=== PATIENT | female | born 1950 | race Caucasian/White ===

== ENCOUNTER 2016-10-31 11:33 | Emergency (ER) | payer MEDICARE, BC ==
[~2016-10-31] VITALS: Ht 162.6 cm; Wt 95.8 kg
[~2016-10-31 11:33] MED LIST: ASPI-557 PO; ATEN50TA66 PO; FLUT16SP EA NOSTRIL; FLUT1DIS3 INH; IBUP-1264 PO; LEVO50TA4 PO; LISI10TA7 PO; MULT-933 PO; OLOP5DRO BOTH EYES; PANT40TA PO; VALE530C PO
[2016-10-31 11:35] VITALS: Ht 162.6 cm; Wt 95.8 kg
--- OUTSIDE RECORDS SUMMARY | 2016-10-31 11:37 | XMS REPORT | Continuity of Care Document ---
Author Author [facility] Organization [facility] Address Unknown Phone Unavailable Allergies Medications Problems Procedures Results Encounters ACCT No. Visit Date/Time Discharge Status Pt. Type Provider Facility Loc./Unit Complaint [id number] 04/25/2015 19:10:00 2014 04:41:34 DIS Emergency NANNETTE MARSHALL
--- OUTSIDE RECORDS SUMMARY | 2016-10-31 11:37 | XMS REPORT | Continuity of Care Document ---
Author Author [facility] Organization [facility] Address Unknown Phone Unavailable Support Name Relationship Address Phone CHINYERE BETANCOURT MD Caregiver [address] [place] [address] Unavailable CHINYERE BETANCOURT MD Caregiver [address] [place] [address] Unavailable RICHARD STEWART Next Of Kin [address] [facility] [address] [place] [address] C Insurance Providers Guarantor Mitra Stewart Address [address] [place] [address] C Email [email or web address] Policy Number [id number] Subscriber's Name Mitra Stewart Relationship 18 Self Group Number [id number] Effective Date 12 Expiration Date 13 Advance Directives Directive Response Recorded Date/Time Ordered Resuscitation Status Full Code 02/15/16 2:05pm Resuscitation Documents on File No 02/16/16 6:41am DPOA for Healthcare Only No 02/16/16 6:41am Living Will No 02/16/16 6:41am Problems Active Problems Medical Problem Onset Date Status Chest discomfort Unknown Acute Post-procedure ecchymosis Unknown Acute Right arm pain Unknown Acute Urinary tract infection Unknown Acute Medications Current Home Medications Medication Dose Units Route Directions Days Qty Instructions Start Date Aspirin (Aspir 81) 81 Mg Tablet. 1 Tab Oral Daily 11/04/14 Atenolol (Tenormin) 50 Mg Tablet 1 Tab Oral Bedtime 01/07/11 Fluticasone Propionate (Fluticasone Prop 50 Mcg/Actuation Nasal [place]) 120 [place]/16 G [place] 1 [place] Intranasal As Needed 16 02/15/16 Fluticasone/Salmeterol (Advair 250-50 Diskus) 1 Disk W/Dev Inhaler 1 Puff Oral Twice A Day 60 02/15/16 Ibuprofen 800 Mg Tablet 1 Tab Oral As Needed as needed for Pain 09/24/09 Levothyroxine Sodium (Synthroid) 50 Mcg Tablet 1 Tab Oral Daily 30 02/15/16 Lisinopril 10 Mg Tablet 1 Tab Oral Bedtime 04/26/15 Multivitamin (Multi-Day Vitamins) 1 Each Tablet 1 Tab Oral Daily 30 Tablet 02/15/16 Olopatadine Hcl (Patanol) 50 Drop/5 Ml Drops 1 Drop Both Eyes Twice A Day as needed for Prn Orders 04/26/15 Pantoprazole Sodium (Protonix) 40 Mg Tablet. 1 Tab Oral Before Breakfast 11/04/14 Valerian Root (Valerian) 450 Mg Capsule 4 Cap Oral Daily 02/15/16 Past Home Medications Medication Directions Ordered Status Acyclovir 400 Mg Tablet, 1 Tab Oral 11/04/14 Discontinued Atenolol (Tenormin) 25 Mg Tablet, Daily 09/24/09 Discontinued Bi/Pro/Dhea .60/2. , Daily 09/24/09 Discontinued Loratadine 10 Mg Tablet, 10 Mg Oral Twice A Day 02/17/11 Discontinued Meclizine Hcl 25 Mg Tablet, 25 Mg Oral As Needed 02/17/11 Discontinued Triamterene/Hydrochlorothiazid (Maxzide 75/50 Tablet) 1 Tab Tablet, Daily 08/04 Discontinued Social History Social History Problem Response Recorded Date/Time Onset Date Status Chewing Tobacco Status No 02/16/2016 6:37am Not Applicable Not Applicable Hx Substance Use No 02/16/2016 6:37am Not Applicable Not Applicable Hx Alcohol Use No 02/16/2016 6:37am Not Applicable Not Applicable Has the pt used tobacco in the last 12 months No 02/16/2016 6:37am Not Applicable Not Applicable Query Response Start Date Stop Date Smoking Status Never smoker Hospital Discharge Instructions No hospital discharge instructions. Plan of Care Discharge Date 02/16/16 9:00am Prescriptions See Medication Section Functional Status Query Response Date Recorded Ability to complete ADL's impeded by No change February 16, 2016 6:41am Allergies, Adverse Reactions, Alerts Allergen Type Severity Reaction Status Last Updated indomethacin sodium Allergy Unknown VERTIGO Active 04/26/15 ciprofloxacin HCl Allergy Unknown VOMITING Active 04/26/15 rosuvastatin calcium Allergy Unknown MYALGIA Active 04/26/15 Indomethacin Allergy Unknown VERTIGO Active 04/26/15 Cefaclor Allergy Unknown RASH Active 04/26/15 Erythromycin base Allergy Unknown RASH Active 04/26/15 Ciprofloxacin Allergy Unknown VOMITING Active 04/26/15 Barium iodide Allergy Unknown RASH Active 04/26/15 Milk Allergy Unknown Active 02/15/16 Wheat Allergy Unknown Active 02/15/16 Immunizations Query Response on File Recorded Date/Time Hx Influenza Vaccination Y fall 201302/16/16 6:37am Hx Pneumococcal Vaccination No 02/16/16 6:37am Hx Tetanus, Diptheria, Pertussis Y 200811/04/14 5:56am Hx Influenza Vaccination Y fall 201302/16/16 6:37am Hx Tetanus, Diptheria, Pertussis Y 200811/04/14 5:56am Vital Signs Acute Vital Signs Vital Response Date/Time Temperature (Fahrenheit) 97.8 deg F (96.8 - 99.1) 02/16/2016 7:58am Temperature (Calculated Celsius) 36.78920 degrees C (36.0 - 37.3) 02/16/2016 7:58am Temperature Source Oral 02/16/2016 7:58am Pulse Rate (adult) 50 bpm (60 - 100) 02/16/2016 8:55am Respiratory Rate 16 breaths/min (10 - 20) 02/16/2016 8:55am O2 Sat by Pulse Oximetry 98 % (90 - 100) 02/16/2016 8:55am Oxygen Delivery Method Room Air 02/16/2016 8:55am Blood Pressure 130/63 mm Hg 02/16/2016 8:55am Blood Pressure Source Automatic Cuff 02/16/2016 8:55am Height (Feet) 5 feet 02/16/2016 6:33am Height (Inches) 4.50 inches 02/16/2016 6:33am Weight (Kilograms) 86.800 kg 02/16/2016 6:33am Body Mass Index (BMI) 32.3 02/16/2016 6:33am Results No known relevant diagnostic tests, laboratory data and/or discharge summary. Procedures Procedure Status Date Provider(s) ECHO EXAM OF ABDOMEN Completed 12/10/15 HEPATOBIL SYST IMAGE W/DRUG Completed 12/22/15 639410"TECHNETIUM TC-99M MEBROFENIN, DIAGNOSTIC, PER STUDY D Completed 120138"INJECTION, SINCALIDE, 5 MICROGRAMS" Completed 12/22/15 EGD (esophagogastroduodenoscopy) Completed 02/16/16 CHINYERE BETANCOURT MD Encounters Encounter Location Arrival/Admit Date Discharge/Depart Date Attending Provider Departed [facility] 02/16/16 6:08am 02/16/16 9: 00am CHINYERE BETANCOURT MD [facility] 12/22/15 7:03am WILL GIRALDO Registered [facility] 12/10/15 7:10am WILL GIRALDO
--- NOTE | 2016-10-31 11:55 | NUR ---
PROVIDER DR HOANG IN TO SEE PATIENT.
[2016-10-31] MEDS ORDERED: NITROGLYCERIN 0.4 MG SUBLINGUAL TABLET SL PRN (12:00)
[2016-10-31 12:04] LABS: BASOPHILS % (AUTO) 0.4 % (0-2); EOSINOPHILS # (AUTO) 0.1 T/MM3 (0-0.5); EOSINOPHILS % (AUTO) 0.9 % (0-4); HGB - HEMOGLOBIN 12.7 GM/DL (12-16); IMMATURE GRANULOCYTE # (AUTO) 0.01 T/MM3 (0.00-0.03); IMMATURE GRANULOCYTE % (AUTO) 0.2 % (0.0-0.5); LYMPHOCYTES # (AUTO) 1.7 T/MM3 (1-4.8); LYMPHOCYTES % (AUTO) 31.5 % (23-45); MEAN CORPUSCULAR HGB 28.8 UUG (26-34); MEAN CORPUSCULAR HGB CONC(MCHC 32.6 GM/DL (31-37); MEAN CORPUSCULAR VOLUME 88.4 UM3 (80-100); MEAN PLATELET VOLUME 9.2 UM3 (9.4-12.4); MONOCYTES # (AUTO) 0.3 T/MM3 (0-0.8); MONOCYTES % (AUTO) 5.9 % (0-9.0); NEUTROPHILS #(AUTO)-ABSOLUTE 3.3 T/MM3 (1.8-7.7); NEUTROPHILS % (AUTO) 61.1 % (33-66); RED BLOOD COUNT 4.41 M/MM3 (4.00-5.20); WBC - WHITE BLOOD COUNT 5.4 T/MM3 (4.5-11.0)
[2016-10-31 12:09] LABS: INR 1.06 (0.76-1.04); PROTHROMBIN TIME 11.6 SEC (9.31-12.49)
--- OUTSIDE RECORDS SUMMARY | 2016-10-31 12:09 | XMS REPORT | Continuity of Care Document ---
Author Author [facility] Organization [facility] Address Unknown Phone Unavailable Allergies Medications Problems Procedures Results Encounters ACCT No. Visit Date/Time Discharge Status Pt. Type Provider Facility Loc./Unit Complaint [id number] 04/25/2015 19:10:00 2014 04:41:34 DIS Emergency NANNETTE MARSHALL
--- OUTSIDE RECORDS SUMMARY | 2016-10-31 12:09 | XMS REPORT ---
Author [facility] Organization Unknown Address Unknown Phone Unavailable Care Team Providers Care Air Traffic Control Supervisor Name Role Phone UNASSIGNED DOCTOR , DOCTOR PP [phone] Reason For Visit Chief Complaint POSSIBLE UTI Social History Functional Status Vital Signs Results Urinalysis from 04/25/2015 7:30 PM*URINE COLOR YELLOW (STRAW/YELL/DK YELL ) *URINE APPEARANCE CLEAR (CLEAR ) URINE PH 6.0 (5.0-8.0 ) URINE SPECIFIC GRAVITY <1.005 (<=1.005->=1.030 ) *URINE GLUCOSE NEGATIVE MG/DL (NEGATIVE MG/DL) *URINE BILIRUBIN NEGATIVE (NEGATIVE ) *URINE KETONES NEGATIVE MG/DL (NEGATIVE MG/DL) *URINE BLOOD LARGE A (NEGATIVE ) *URINE PROTEIN 30 MG/DL A (NEGATIVE MG/DL) *URINE UROBILINOGEN 1.0 EU/DL (0.2-1.0 EU/DL) *URINE NITRITES POSITIVE A (NEGATIVE ) *URINE LEUKOCYTES LARGE A (NEGATIVE ) *MICROSCOPIC EXAM PERFORMED PERFORMED *WBC URINE 25-50 /HPF A (0-5 /HPF) *RBC URINE 1-5 /HPF A (0-1 /HPF) *BACTERIA MODERATE /HPF A (NEGATIVE /HPF) Microbiology from 04/25/2015 7:30 PM* CULTURE URINE (Preliminary Result) Specimen Number: [id number] Sample Collection Date/Time: 04/25/2015 7:30 PM Specimen Source: Urine Random Void CULTURE URINE: Gram-negative bacillus >100,000 cfu/ml ID and Susceptibility to follow Problems Encounter Diagnosis No relevant problems exist. Encounters Encounter Diagnosis No relevant problems exist. Plan of Care Procedures No relevant procedures performed. Immunizations No immunizations administered or ordered. Hospital Course Hospital Discharge Instructions Allergies, Adverse Reactions, Alerts * Latex Allergy has not been assessed. * IV Contrast Allergy has not been assessed. Medication Medication reconciliation has not been performed.
[2016-10-31 12:14] LABS: ANION GAP 14 MEQ/L (5-15); BUN/CREATININE RATIO 16 RATIO (6-26); CALCIUM 9.8 MG/DL (8.4-10.2); CHLORIDE 105 MEQ/L (98-107); CO2 - CARBON DIOXIDE 24 MEQ/L (22-30); CREATININE 1.1 MG/DL (0.7-1.2); GLOMERULAR FILTRATION RATE 50; GLUCOSE 97 MG/DL (65-110); POTASSIUM 4.3 MEQ/L (3.6-5); SODIUM 143 MEQ/L (134-144)
--- NOTE | 2016-10-31 12:19 | NUR ---
STATUS PATIENT STATES THAT PAIN IS 0.5/10 AND THAT IT IS BETTER.
[2016-10-31] MEDS ORDERED: ATEN25TA PO (12:21)
--- NOTE | 2016-10-31 12:21 | NUR ---
XRAY PORTABLE XRAY BEING DONE AT THIS TIME.
[2016-10-31 12:22] LABS: PROBNP 103 PG/ML (0-175)
[2016-10-31] MEDS ORDERED: OMEG100T PO (12:30)
[2016-10-31] MEDS ORDERED: NITR0.4T39 PO (12:30)
[2016-10-31] MEDS ORDERED: LORA10TA7 PO (12:30)
[2016-10-31] MEDS ORDERED: ESTR42.53 VAGINALLY (12:30)
--- NOTE | 2016-10-31 12:31 | NUR ---
PROVIDER DR HOANG IN TO SEE PATIENT.
[2016-10-31] MEDS ORDERED: FLUO15CR TOP (12:32)
[2016-10-31] MEDS ORDERED: ACET-1770 PO (12:32)
--- NOTE | 2016-10-31 12:32 | DI ---
EXAM: CHEST 1 VIEW LOCATION OF DICTATION: [place] HISTORY: ITS.REASON: chest pain COMPARISON: No prior studies available for comparison. FINDINGS: The heart size is normal. The mediastinal configuration is within normal limits. There are no consolidating opacities or pleural effusions. There is no pneumothorax. The osseous structures are within normal limits for the patient's age. IMPRESSION: No acute cardiopulmonary abnormalities demonstrated. .
--- NOTE | 2016-10-31 12:35 | NUR ---
ELIMINATION PATIENT UP TO BR TO VOID.
[2016-10-31] MEDS ORDERED: ACET325T51 PO (12:36)
[2016-10-31] MEDS ORDERED: OMEP40CA52 PO (12:36)
[2016-10-31] MEDS ORDERED: RANI150T7 PO (12:36)
[2016-10-31] MEDS ORDERED: PRED1DRO LEFT EYE (12:36)
--- NOTE | 2016-10-31 12:42 | ERPDOC ---
Departure Disposition Decision Date: October 31, 2016 Disposition Decision Time: 13:04 Disposition: 02 TO [facility] Impression Impression Impression: Primary Impression: Chest pain Chest pain type: unspecified Qualified Codes: R07.9 - Chest pain, unspecified Severity: Mild Condition: Improved Seen By: Physician only Referrals: CHINYERE BETANCOURT MD (Family) Problems/Meds/Labs Reviewed?: Yes Medications reviewed and manag: Yes Follow up care ordered?: Yes Mental Status: Alert, Oriented HPI - Chest Pain General Chief Complaint: Chest Pain Stated Complaint: CP Time Seen by Provider: 11:50 Source: patient (Patient presents to the ER with chest pain, that began approx 2 hours prior to ER arrival, while working in her garden. Patient took 324mg ASA and (2) NTG which did decrease her pain, but did not eliminate the pain. ) , other (Patient is refusing additional NTG or Morphine, because of the "Way it makes me feel. ) Exam Limitations: no limitations HPI - Chest Pain Occurred At: home Onset/Timing: Changing over time Duration: 1-3 hrs Pain/Severity Scale: Now & Worst: 1/10 Activities at Onset/Context: activity Location: substernal Quality: pressure Associated Symptoms: denies symptoms Chest Pain Radiation: no radiation Nitro Today/Relief: 0.4 mg x 2, provided at home, mild relief Aspirin Treatment Today: 81 mg x 4, provided at home Prior Chest Pain/Cardiac Kayy: cardiac cath, stress test Hx of Similar Symptoms: Yes Allergies: Coded Allergies: barium iodide (Verified Allergy, Unknown, RASH, 10/31/16) cefaclor (Verified Allergy, Unknown, RASH, 10/31/16) ciprofloxacin (Verified Allergy, Unknown, VOMITING, 10/31/16) ciprofloxacin HCl (Verified Allergy, Unknown, VOMITING, 10/31/16) erythromycin base (Verified Allergy, Unknown, RASH, 10/31/16) indomethacin (Verified Allergy, Unknown, VERTIGO, 10/31/16) indomethacin sodium (Verified Allergy, Unknown, VERTIGO, 10/31/16) milk (Verified Allergy, Unknown, 10/31/16) rosuvastatin calcium (Verified Allergy, Unknown, MYALGIA, 10/31/16) wheat (Verified Allergy, Unknown, 10/31/16) Past History Past Medical History Metabolic: hypertension, hypothyroidism Cardiac: CAD, angina, other GI: GERD, IBS Neurological: fibromyalgia Surgical History General: EGD, colonoscopy Cardiac: cardiac stent Joint: carpal tunnel Family History Family PMH: FOUND: diabetes Vaccines Hx Influenza Vaccination: Yes (FALL 2013) Hx Pneumococcal Vaccination: No Hx Tetanus, Diptheria, Pertuss: Yes (2008) Social History Does patient use chewing tobac: No Second Hand Exposure: No Substance Use Type: does not use Alcohol Intake: none Marital Status: Sexuality: male partner Housing: house Household Members: spouse Service: No Current Occupational Status: retired Occupational Hazard: No Advance Directives: Yes Full Code Record Review Pertinent history updated: Yes Review of Systems Constitutional Constitutional: DENIES: chills, fever Eyes Lids/Accessories: DENIES: erythema, swelling ENMT Ears: DENIES: erythema, pain Balance: DENIES: ataxia, vertigo Sinuses: DENIES: congestion, rhinorrhea Mouth/Throat: DENIES: sore throat Cardiovascular Cardiac: chest pain, DENIES: orthopnea Rhythm/Rate: DENIES: tachycardia Pulmonary Respiratory: DENIES: cough, dyspnea, sputum GI Upper Abdomen: DENIES: nausea, pain, vomiting Lower Abdomen: DENIES: constipation, diarrhea, pain General: DENIES: dysuria Musculoskeletal General: DENIES: cramps, pain, weakness Integumentary Skin: DENIES: color change, itching, rash Neurological General: DENIES: ataxia, change in strength, headache, numbness, poor coordination, seizures, syncope, vertigo, weakness Psychiatric Psychiatric: DENIES: anxiety, depression, nervousness Hematologic/Lymphatic Hematologic/Lymphatic: DENIES: anemia Allergic/Immunological Allergic/Immunoligical: DENIES: sneezing All other Systems All Other Systems: Reviewed and Negative Physical Exam General General Nourishment: well nourished, well developed, appears stated age, adult General Body Habitus: well groomed Vitals and Pain First Documented Vital Signs Date Time Temp Pulse Resp B/P Pulse Ox O2 Delivery O2 Flow Rate FiO2 10/31/16 11:35 98.2 62 16 168/72 98 Room Air Weight: Kilograms: 95.800 Height (feet): 5 Height (inches): 4.00 Triage Pain Scale: RN VS reviewed by Provider: Yes Eyes (brief) Eyes Brief: found: EOMI, PERRL ENMT (brief) ENMT Brief: FOUND: TM clear, TM good light reflex, mucosa moist, NOT FOUND: pharnyx erythema Neck (brief) Neck: FOUND: trachea midline, NOT FOUND: adenopathy, tenderness, tracheal deviation Respiratory (brief) Respiratory: FOUND: clear all wilkinson, equal bilaterally Cardiovascular (brief) Cardiac: FOUND: regular rate, regular rhythm Capillary Refill: <2 sec Pulses: all distal extremities, equal, strong Abdomen (brief) Abdominal Brief: FOUND: bowel normo active x4, soft, NOT FOUND: distended, tender Lymphatic (brief) Lymphatic Brief: NOT FOUND: adenopathy Musculoskeletal (brief) Musculoskeletal Brief: NOT FOUND: spasm, tenderness Integumentary (brief) Integumentary Brief: FOUND: pink, warm Neurologic (brief) Neurological Brief: FOUND: CN w/o gross def to obs, gait w/o gross def to obs, motor-no gross deficits, sensory-no gross deficits, NOT FOUND: ataxia Psychiatric (brief) Psychiatric Brief: FOUND: alert, attentive, normal affect, oriented Differential Diagnoses Considering: Acute PA, Anxiety/Panic, Angina, Aortic Dissection, Costochondritis, Esophageal Spasm, Pericarditis, Pleurisy, Pneumothorax, Pneumonia, Pulmonary Edema, Other Progress Results/Orders Orders Procedure Category Date Status Time EKG EKG 10/31/16 Taken 11:34 Cbc W/Auto LAB 10/31/16 Complete Diff-Reflex Manual 11:51 Bmp - Basic Metabolic LAB 10/31/16 Complete Panel 11:51 Probnp LAB 10/31/16 Complete 11:51 Troponin I W LAB 10/31/16 Complete Hemolysis Index 11:51 INR LAB 10/31/16 Complete 11:51 Chest 1 View RAD 10/31/16 Resulted 11:51 Iv Lock (Ed Only) EDM 10/31/16 Transmitted 11:51 Nitroglycerin PHA 10/31/16 Complete (Nitrostat) 12:00 Heparin Bolus PHA 10/31/16 Complete (Heparin Bolus) 13:00 Heparin 20,000 PHA 10/31/16 Complete Units/D5w 500ml 13:00 Heparin 20,000 PHA 10/31/16 Complete Units/D5w 500ml 13:15 Lab Results Laboratory Tests Test 10/31/16 11:56 White Blood Count 5.4T/MM3 Red Blood Count 4.41M/MM3 Hemoglobin 12.7GM/DL Hematocrit 39.0% Mean Corpuscular Volume 88.4UM3 Mean Corpuscular Hemoglobin 28.8UUG Mean Corpuscular Hemoglobin Concent 32.6GM/DL RDW Standard Deviation 41.5FL Platelet Count 127T/MM3 Mean Platelet Volume 9.2UM3 Immature Granulocyte % (Auto) 0.2% Neutrophils (%) (Auto) 61.1% Lymphocytes (%) (Auto) 31.5% Monocytes (%) (Auto) 5.9% Eosinophils (%) (Auto) 0.9% Basophils (%) (Auto) 0.4% Absolute Immature Granulocyte (auto 0.01T/MM3 Absolute Neutrophils (auto) 3.3T/MM3 Absolute Lymphocytes (auto) 1.7T/MM3 Absolute Monocytes (auto) 0.3T/MM3 Absolute Eosinophils (auto) 0.1T/MM3 Absolute Basophils (auto) 0.0T/MM3 Prothromb Time International Ratio 1.06 Turbidity < 20 Sodium Level 143MEQ/L Potassium Level 4.3MEQ/L Chloride Level 105MEQ/L Carbon Dioxide Level 24MEQ/L Anion Gap 14MEQ/L Blood Urea Nitrogen 18.0MG/DL Creatinine 1.1MG/DL Glomerular Filtration Rate Calc 50 BUN/Creatinine Ratio 16RATIO Glucose Level 97MG/DL Calculated Osmolality 277MOSM/KG Calcium Level 9.8MG/DL Icterus Index < 2 Troponin I < 0.012ng/ml [id number] Natriuretic Peptide 103PG/ML Chemistry Specimen Hemolysis < 15 Medications Current ED Medications Nitroglycerin 0.4 mg 0.4 mg Q5MIN PRN SL CHEST PAIN; Start 10/31/16 at 12:00; Stop 10/31/16 at 13:37; Status DC Heparin Sodium/ Dextrose (Heparin Drip) 500 ml @ 25 mls/hr Q20H IV ; Start 10/31 at 13:15; Stop 10/31/16 at 13:37; Status DC Heparin Sodium (Porcine) 4000 unit 4,000 unit O ONCE IV Last administered on 13:09; Start 10/31/16 at 13:00; Stop 10/31/16 at 13:04; Status DC Heparin Sodium/ Dextrose (Heparin Drip) 500 ml @ 25 mls/hr Q20H IV Last administered on 10/31/16 13:12; Start 10/31/16 at 13:00; Stop 10/31/16 at 13:37; Status DC Progress Progress Patient continues to have slight chest pain, ratin 07/04 Patient is refusing additional NTG or Morphine because "of the way it makes me feel" EKG EKG : Rate: <60 Rhythm: sinus [place]: normal QRS: RBBB (Incomplete) Intervals: normal ST/T: normal Interpreted by: signing physician EKG ScImage/Picomm EKG interpreted in ScImage/Pic: No Consult/PCP Consult/PCP : Physician Contacted: Dr. Evangelista Time Called: 12:25 Time of first response: 12:55 Type of discussion: Admit Discussion/PCP Discussion Details Discussed patient examination, EKG, Labs, CXR, and continued chest pain Comments Transfer to [facility] Heparin Bolus and Infusion Dr. Evangelista will call and Make arrangements Xray Xray : Reason for Exam: Chest Pain Xray: CXR Portable Interpretation: Normal, Reviewed Written Report KRISTEN HOANG DO October 31, 2016 12:42
--- NOTE | 2016-10-31 12:44 | NUR ---
PROVIDER DR HOANG IN TO SEE PATIENT.
[2016-10-31] MEDS ORDERED: HEPARIN 20,000 units/D5W 500ml 500 ML IV SCH ×2 (13:00→13:15)
--- NOTE | 2016-10-31 13:18 | NUR ---
REPORT GIVEN TO FANNIE JOHNSON AT [facility].
[2016-10-31 13:37] VITALS: BP 160/69; PULSE 54; RESP 16; TEMP 98.2; O2SAT 98
--- NOTE | 2016-10-31 13:37 | NUR ---
TRANSFER PATIENT REPORT GIVEN TO [facility] FOR TRANSFER TO [place]. CARE ASSUMED BY EMS. HEPARIN GTT INFUSING AT THIS TIME.
== END 2016-10-31 13:37 | disposition short-term general hospital (02) ==
LOC: ED 11:33
DX: R07.89 Other chest pain (principal); I10 Essential (primary) hypertension; I25.10 Atherosclerotic heart disease of native coronary artery without angina pectoris; Z95.5 Presence of coronary angioplasty implant and graft
CPT/HCPCS: 71010; 80048; 83880; 84484; 85025; 85610; 93005; 96365; 96376; 99285; J1644